=== PATIENT | female | born 1930 | race Caucasian/White ===

== ENCOUNTER 2018-08-10 23:43 | Emergency (ER) | payer MEDICARE, BC ==
[~2018-08-10] VITALS: Ht 170.2 cm; Wt 59.1 kg
[~2018-08-10 23:43] MED LIST: CEFTIN250 MG PO; INDERAL; INDERAL 20MG20 MG PO; PROPRANOLOL; PYRIDIUM 100MG100 MG PO; VALIUM 5MG T5 MG/TAB PO; ZITHROMAX 250M250 MG PO
[2018-08-10 23:49] VITALS: TEMP 96.9
[2018-08-11 00:44] VITALS: BP 163/97; PULSE 59
== END 2018-08-11 00:46 | disposition home or self-care (01) ==
LOC: COL.ER 23:43
DX: I10 Essential (primary) hypertension (principal); Z90.89 Acquired absence of other organs

== ENCOUNTER 2019-04-17 13:51 | Emergency (ER) | payer MEDICARE, BC ==
[~2019-04-17] VITALS: Ht 170.2 cm; Wt 58.6 kg
[2019-04-17 14:05] VITALS: TEMP 97.4
[2019-04-17 14:38] LABS: HEMOGLOBIN 13.7 g/dl (12.5-16.0); MEAN CELL VOLUME 97 fl (80.0-100.0); MEAN CORPUSCULAR HEMOGLOBIN 32 pg (27.0-31.0); MEAN CORPUSCULAR HGB CONC 33 g/dl (33.0-37.0); MEAN PLATELET VOLUME 9.6 fl (7.4-10.4); PLATELET COUNT 220 K/mm3 (130-400); RED BLOOD COUNT 4.33 M/mm3 (4.10-5.30); REDCELL DISTRIBUTION WIDTH-CV 12.8 % (11.5-14.5)
[2019-04-17 14:48] LABS: ALANINE AMINOTRANSFERASE 171 U/L (9-52); ALBUMIN 4.6 gm/dL (3.5-5.0); ALKALINE PHOSPHATASE 104 U/L (50-136); ANION GAP 10 mmol/L (7-16); AST,SGOT 324 U/L (15-37); BILIRUBIN,TOTAL 1.9 mg/dL (0.0-1.0); BLOOD UREA NITROGEN 25 mg/dL (7-17); CALCIUM 9.2 mg/dL (8.4-10.2); CARBON DIOXIDE 27 mmol/L (22-30); CHLORIDE 99 mmol/L (98-107); CREATININE, serum 0.66 (0.52-1.25); GLUCOSE 150 mg/dL (74-106); POTASSIUM 4.3 mmol/L (3.4-5.0); SODIUM 137 mmol/L (137-145); TOTAL PROTEIN 8.2 gm/dL (6.4-8.2)
[2019-04-17 15:03] LABS: TROPONIN-I < 0.012 ng/mL (0.000-0.035)
[2019-04-17 15:15] LABS: INR 0.9 (0.8-3.0); PROTHROMBIN TIME 10.8 SECONDS (9.7-12.8)
[2019-04-17 15:30] LABS: BAND 4 % (0-10); EOSINOPHIL 1 % (0-4); LYMPHOCYTE 6 % (20.0-51.0); NEUTROPHILS 89 % (42.0-75.2)
[2019-04-17 15:31] LABS: PLATELET ESTIMATE NORMAL (NORMAL)
[2019-04-17 16:15] VITALS: BP 150/96; PULSE 83
== END 2019-04-17 16:55 | disposition left against medical advice (07) ==
LOC: COL.ER 13:51
PROVIDERS: Emergency Medicine
DX: R07.89 Other chest pain (principal); I10 Essential (primary) hypertension; G43.909 Migraine, unspecified, not intractable, without status migrainosus

== ENCOUNTER → 2019-04-24 | Outpatient (CLI) | payer MEDICARE, BC | LOC: COL.RAD 08:00 | DX: K82.8 Other specified diseases of gallbladder (principal) ==